=== PATIENT | female | born 1970 | race Two or more races ===

== ENCOUNTER 2019-01-13 07:06 | Inpatient (IN) | payer SELFPAY ==
[~2019-01-13] VITALS: Ht 154.9 cm; Wt 79.4 kg
[2019-01-13] MEDS ORDERED: SODIUM CHLORIDE 0.9% 1,000 ML IV ONE ×2 (08:11→11:00)
[2019-01-13] MEDS ORDERED: MORPHINE SULFATE 4 MG/ML CPJ (NOT FOR IM USE) IV STA (08:11)
[2019-01-13] MEDS ORDERED: FAMOTIDINE 20MG/2ML VIAL IV STA (08:11)
[2019-01-13 08:41] LABS: BASOPHILS % 0.4 % (0.0-2.0); EOSINOPHILS % 0.2 % (0.0-5.0); HEMATOCRIT. 39.6 % (36.0-48.0); HEMOGLOBIN. 13.3 g/dL (12.0-16.0); LYMPHOCYTES % 11.6 % (20.0-50.0); MEAN CORPUSCULAR HEMOGLOBIN 29.1 pg (28.0-32.0); MEAN CORPUSCULAR VOLUME 86.6 fL (81.0-99.0); MEAN PLATELET VOLUME 8.2 fl (7.4-10.4); NEUTROPHILS % 79.8 % (40.0-76.0); PLATELET 225 x1000/uL (130-400); RED BLOOD CELL COUNT 4.57 mill/uL (4.2-5.4); RED CELL DISTRIBUTION WIDTH 13.9 % (11.6-14.6)
[2019-01-13 08:45] LABS: CHLORIDE 107 mEq/L (98-107)
[2019-01-13 08:51] LABS: CLARITY URINE TURBID (CLEAR); COLOR URINE DARK YELLOW (YELLOW); KETONES URINE TRACE (NEGATIVE); LEUKOCYTE ESTERASE URINE TRACE (NEGATIVE); NITRITE URINE NEGATIVE (NEGATIVE); OCCULT BLOOD URINE NEGATIVE (NEGATIVE); PH URINE >=9.0 (4.5-8.0); PROTEIN URINE 1+ (NEGATIVE); SPECIFIC GRAVITY URINE 1.025 (1.005-1.030)
[2019-01-13] MEDS ORDERED: PIPERACILLIN/TAZOBACTAM 3.375GM/50ML PREMIX IV ONE (11:00)
[2019-01-13] MEDS ORDERED: PIPERACILLIN/TAZ 3.375G PREMIX 50 ML IV ONE (11:00)
[2019-01-13 11:06] LABS: AMYLASE 1145 IU/L (25-115)
[2019-01-13] MEDS ORDERED: MORPHINE SULFATE 4 MG/ML CPJ (NOT FOR IM USE) IV ONE (11:45)
[2019-01-13] MEDS ORDERED: SODIUM CHLORIDE 0.9% 1,000 ML IV SCH (14:19)
[2019-01-13] MEDS ORDERED: ZOLPIDEM TARTRATE 5MG TABLET PO PRN ×2 (14:30→21:00)
[2019-01-13] MEDS ORDERED: NITROGLYCERIN 0.4MG TABLET SL SL PRN ×2 (14:30→20:45)
[2019-01-13] MEDS ORDERED: TRAMADOL 50MG TABLET PO PRN ×2 (14:30→20:45)
[2019-01-13] MEDS ORDERED: LORAZEPAM 0.5MG TABLET PO PRN ×2 (14:30→20:45)
[2019-01-13] MEDS ORDERED: IPRATROPIUM/ALBUTEROL 0.5-3(2.5)MG/3ML NEB INH PRN ×2 (14:30→20:45)
[2019-01-13] MEDS ORDERED: ONDANSETRON HCL 4MG/2ML INJ IV PRN ×2 (14:30→20:45)
[2019-01-13] MEDS ORDERED: GUAIFENESIN 200MG/10ML SUGAR FREE UDC PO PRN ×2 (14:30→20:34)
[2019-01-13] MEDS ORDERED: DOCUSATE SODIUM 100MG CAPSULE PO PRN ×2 (14:30→20:45)
[2019-01-13] MEDS ORDERED: CLONIDINE 0.1MG TABLET PO PRN ×2 (14:30→20:45)
[2019-01-13] MEDS ORDERED: MORPHINE SULFATE 4 MG/ML CPJ (NOT FOR IM USE) IV PRN ×2 (14:30→20:45)
[2019-01-13] MEDS ORDERED: KETOROLAC 15MG/ML VIAL IV PRN ×2 (14:30→20:45)
[2019-01-13] MEDS ORDERED: MAGNESIUM/ALUMINUM HYDROXIDE/SIMETHICONE 30ML UDC PO PRN ×2 (14:30→20:45)
[2019-01-13 15:17] LABS: METHADONE URINE SCREEN NEGATIVE (NEGATIVE); OPIATES URINE SCREEN NEGATIVE (NEGATIVE); PHENCYCLIDINE URINE SCREEN NEGATIVE (NEGATIVE)
[2019-01-13 15:18] LABS: *AMPHETAMINES SCREEN URINE NEGATIVE (NEGATIVE); *BARBITURATES SCREEN URINE NEGATIVE (NEGATIVE); *BENZODIAZEPINES SCREEN URINE NEGATIVE (NEGATIVE); *COCAINE SCREEN URINE NEGATIVE (NEGATIVE); CANNABINOID URINE SCREEN NEGATIVE (NEGATIVE)
[2019-01-13] MEDS ORDERED: ENOXAPARIN 40MG/0.4ML SYR SUBCUT NR (15:30)
[2019-01-13 17:05] VITALS: BP 108/58
[2019-01-13 20:00] VITALS: BP 100/55
[2019-01-13] MEDS: SODIUM CHLORIDE 0.9% 1,000 ML IV SCH (21:16)
[2019-01-14] VITALS: BP 101/59
[2019-01-14] MEDS: SODIUM CHLORIDE 0.9% 1,000 ML IV SCH (01:38)
[2019-01-14 04:00] VITALS: BP 91/51
[2019-01-14 08:00] VITALS: BP 112/61
[2019-01-14] MEDS ORDERED: PANTOPRAZOLE SODIUM 40 MG/VIAL IV SCH ×3 (09:00)
[2019-01-14] MEDS ORDERED: ENOXAPARIN 40MG/0.4ML SYR SUBCUT SCH ×3 (09:00→14:30)
[2019-01-14 11:35] VITALS: BP 107/62
[2019-01-14 15:33] VITALS: BP 102/59
[2019-01-14 16:12] VITALS: BP 113/59
== END 2019-01-14 17:58 | disposition home or self-care (01) | DRG 282 ==
LOC: ER 07:06 → 6EST 14:12 → EDBEDREQ 14:17 → ENRESERV 15:39 → ER 16:15
PROVIDERS: ADMIT Internal Medicine; ATTEND Internal Medicine
DX: K85.10 Biliary acute pancreatitis without necrosis or infection (principal); E66.9 Obesity, unspecified; K80.20 Calculus of gallbladder without cholecystitis without obstruction; R74.0 Nonspecific elevation of levels of transaminase and lactic acid dehydrogenase [LDH]; Z68.33 Body mass index [BMI] 33.0-33.9, adult
CPT/HCPCS: 36415; 76705; 80076; 80305; 80320; 82140; 82150; 83036; 83615; 96365; 99285; C9113; J1650; J2270; J2405; J2543; J3490; J7030; G0480